=== PATIENT | female | born 1995 | race Two or more races ===

== ENCOUNTER 2019-05-22 20:26 | Emergency (ER) | payer OTHER ==
[~2019-05-22] VITALS: Ht 165.1 cm; Wt 49.9 kg
--- NOTE | 2019-05-22 20:35 | NUR ---
ED Nurse Note: Patient walked into ED accompanied by boyfriend c/o abnormal vaginal bleeding for the past 3 months, complains of intermittent leaking of bright red blood. does not complain of pain, states that she saturates about 11 pads a day, complains of dizziness and weakness. will wait for further orders
[2019-05-22 20:40] VITALS: BP 111/75
--- NOTE | 2019-05-22 20:51 | Emergency Room Report ---
History of Present Illness General Chief Complaint: Vaginal Source: Patient Present Illness HPI 24-year-old female, history of menorrhagia, irregular periods, no surgical history presents with 3 months of vaginal bleeding up to 11 pads per day, patient has been feeling lightheaded, tired, no known aggravating relieving factors severity is moderate, constant Allergies: Coded Allergies: No Known Allergies (Unverified , 05/22/19) Patient History Past Medical History: see triage record Last Menstrual Period: 03/02/19 Now: No : 0 Para: 0 Reviewed Nursing Documentation: PMH: Agreed; PSxH: Agreed Nursing Documentation-PMH Past Medical History: No Stated History Review of Systems All Other Systems: negative except mentioned in HPI Physical Exam Vital Signs Date Time Temp Pulse Resp B/P (MAP) Pulse Ox O2 Delivery O2 Flow Rate FiO2 05/22/19 20:28 98.2 97 18 111/75 (87) 99 Room Air Sp02 EP Interpretation: reviewed, normal General Appearance: well appearing, no apparent distress, alert Head: normocephalic, atraumatic Eyes: bilateral eye PERRL, bilateral eye EOMI, bilateral eye conjunctivae pale ENT: uvula midline, moist mucus membranes Neck: supple, thyroid normal, supple/symm/no masses Respiratory: lungs clear, no respiratory distress, no retraction, no accessory muscle use Cardiovascular #1: normal peripheral pulses, regular rate, rhythm, no edema, no gallop, no murmur Gastrointestinal: non tender, soft, no guarding, no rebound Musculoskeletal: normal inspection Neurologic: alert, oriented x3 Psychiatric: mood/affect normal Skin: no rash, warm/dry Medical Decision Making Diagnostic Impression: Primary Impression: Vaginal bleeding Additional Impressions: Symptomatic anemia Dysfunctional uterine bleeding ER Course 24-year-old female presents with signs and symptoms consistent with a symptom medic anemia, patient having 11 pads a day with bleeding, patient refused pelvic exam as well as transvaginal ultrasound We will transfuse blood, will admit patient for work-up of this functional uterine bleeding Spoke with [facility] Patient accepted by Dr. Orlando at [facility] Transfusion of blood started patient will be transferred out Laboratory Tests Test 05/22/19 20:50 05/22/19 21:25 White Blood Count 6.5 K/UL (4.8-10.8) Red Blood Count 3.42 M/UL (4.20-5.40) L Hemoglobin 6.4 G/DL (12.0-16.0) *L Hematocrit 22.0 % (37.0-47.0) L Mean Corpuscular Volume 64 FL (80-99) L Mean Corpuscular Hemoglobin 18.8 PG (27.0-31.0) L Mean Corpuscular Hemoglobin Concent 29.2 G/DL (32.0-36.0) L Red Cell Distribution Width 15.3 % (11.6-14.8) H Platelet Count 280 K/UL (150-450) Mean Platelet Volume 8.4 FL (6.5-10.1) Neutrophils (%) (Auto) % (45.0-75.0) Lymphocytes (%) (Auto) % (20.0-45.0) Monocytes (%) (Auto) % (1.0-10.0) Eosinophils (%) (Auto) % (0.0-3.0) Basophils (%) (Auto) % (0.0-2.0) Differential Total Cells Counted 100 Neutrophils % (Manual) 60 % (45-75) Lymphocytes % (Manual) 34 % (20-45) Monocytes % (Manual) 3 % (1-10) Eosinophils % (Manual) 2 % (0-3) Basophils % (Manual) 1 % (0-2) Band Neutrophils 0 % (0-8) Nucleated Red Blood Cells 1 /100 WBC Platelet Estimate Adequate Platelet Morphology Normal Polychromasia 1+ Hypochromasia 2+ Anisocytosis 1+ Microcytosis 3+ Prothrombin Time 9.3 SEC (9.30-11.50) Prothrombin Time INR 0.9 (0.9-1.1) PTT 24 SEC (23-33) Sodium Level 141 MMOL/L (136-145) Potassium Level 3.8 MMOL/L (3.5-5.1) Chloride Level 106 MMOL/L (98-107) Carbon Dioxide Level 31 MMOL/L (21-32) Anion Gap 4 mmol/L (5-15) L Blood Urea Nitrogen 5 mg/dL (7-18) L Creatinine 0.6 MG/DL (0.55-1.30) Estimate Glomerular Filtration Rate > 60 mL/min (>60) Glucose Level 106 MG/DL (74-106) Calcium Level 9.2 MG/DL (8.5-10.1) Total Bilirubin 0.8 MG/DL (0.2-1.0) Aspartate Amino Transferase (AST) 9 U/L (15-37) L Alanine Aminotransferase (ALT) 25 U/L (12-78) Alkaline Phosphatase 73 U/L (46-116) Total Protein 7.3 G/DL (6.4-8.2) Albumin 3.7 G/DL (3.4-5.0) Globulin 3.6 g/dL Albumin/Globulin Ratio 1.0 (1.0-2.7) Urine HCG, Qualitative Negative (NEGATIVE) CT/MRI/US Diagnostic Results CT/MRI/US Diagnostic Results : Impression Procedure: US Pelvic Complete US PELVIS: Ovaries are unremarkable. No torsion or masses. Uterus and endometrium within normal limits. No free fluid the pelvis. Dictated By: Roger Sagastume MD Electronically Signed By: Signed Date/Time CC: Last Vital Signs Date Time Temp Pulse Resp B/P (MAP) Pulse Ox O2 Delivery O2 Flow Rate FiO2 05/22/19 20:28 98.2 97 18 111/75 (87) 99 Room Air Disposition: XFER SHT-TRM HOSP - [facility] Condition: Stable Yosef Diaz MD May 22, 2019 20:51
[2019-05-22 21:15] LABS: MEAN CORPUSCULAR VOLUME 64 FL (80-99); PLATELET COUNT 280 K/UL (150-450); RED BLOOD COUNT 3.42 M/UL (4.20-5.40); RED CELL DISTRIBUTION WIDTH 15.3 % (11.6-14.8); WHITE BLOOD COUNT 6.5 K/UL (4.8-10.8)
[2019-05-22 21:21] LABS: HEMOGLOBIN 6.4 G/DL (12.0-16.0)
[2019-05-22 21:24] LABS: ANION GAP 4 mmol/L (5-15); BLOOD UREA NITROGEN 5 mg/dL (7-18); CALCIUM 9.2 MG/DL (8.5-10.1); CARBON DIOXIDE 31 MMOL/L (21-32); CHLORIDE 106 MMOL/L (98-107); CREATININE 0.6 MG/DL (0.55-1.30); POTASSIUM 3.8 MMOL/L (3.5-5.1); SODIUM 141 MMOL/L (136-145)
[2019-05-22 21:31] LABS: ALANINE AMINOTRANSFERASE 25 U/L (12-78); ALBUMIN 3.7 G/DL (3.4-5.0); ALKALINE PHOSPHATASE 73 U/L (46-116); ASPARTATE AMINO TRANSFERASE 9 U/L (15-37); BILIRUBIN,TOTAL 0.8 MG/DL (0.2-1.0); INR 0.9 (0.9-1.1)
--- NOTE | 2019-05-22 21:38 | Diagnostic Imaging Report ---
Indication: Vaginal bleeding, pelvic pain, irregular menses Technique: Transabdominal images of the pelvis. No endovaginal images, per patient request. Doppler interrogation of the bilateral ovaries Comparison: none Findings: Exam is limited due to the lack of endovaginal images Uterus is retroverted, measures 8.7 cm in length by 4.2 cm AP. The endometrium measures 5 mm thick. No definite myometrial abnormality. No free cul-de-sac fluid. The left ovary measures 3 cm length. The right ovary measures 5.2 cm length. Both ovaries demonstrate normal flow on Doppler. Impression: Limited exam, due to lack of endovaginal images. Grossly negative This agrees with the preliminary interpretation [facility].
--- NOTE | 2019-05-22 22:20 | NUR ---
ED Nurse Note: Blood transfusion started per ERMD order, consent signed prior to procedure and pt informed by ERMD, pt verbalized understanding of possible risks and complications along with benefits, pt education done, iv 20g on L AC intact and patent. will cont monitor. pt vss, sinus rhythm on site monitor.
--- NOTE | 2019-05-22 22:35 | NUR ---
ED Nurse Note: 15min after start of transfusion, no reaction noted at this time, pt vss, denies chills nor sob nor pain, will cont monitor.
[2019-05-22 23:20] VITALS: BP 102/68
--- NOTE | 2019-05-23 | NUR ---
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 warm blanket provided for comfort.
[2019-05-23] MEDS ORDERED: UNOBMED (00:55)
[2019-05-23 01:00] VITALS: BP 99/46
[2019-05-23 01:16] VITALS: BP 101/66
--- NOTE | 2019-05-23 01:20 | NUR ---
ED Nurse Note: report given to BARI Duran from [facility].
--- NOTE | 2019-05-23 01:53 | NUR ---
ED Nurse Note: [facility] transportation team at the bedside for transport, pt getting transer to [facility], report was given to RN Lesa from [facility], pt vss, resp even and unlabored on RA, iv intact and patent, all belongings given to boyfriend and care endorsed to EMS staf and the transportation mechanic. sumary of care w/ copy of CD ggiven to transport team.
[2019-05-23 01:55] VITALS: BP 99/65
== END 2019-05-23 01:55 | disposition short-term general hospital (02) ==
LOC: EMR 20:47
DX: N93.8 Other specified abnormal uterine and vaginal bleeding (principal); D64.89 Other specified anemias
CPT/HCPCS: 36415; 36430; 76856; 80053; 81025; 85007; 85025; 85610; 85730; 86850; 86900; 86901; 86920; 99285; P9016